=== PATIENT | male | born 1970 | race Caucasian/White ===

== ENCOUNTER 2022-12-08 16:30 | Emergency (ER) | payer MEDICARE, MEDICAID, SELFPAY ==
[2022-12-08 16:45] VITALS: BP 130/69; PULSE 69; RESP 20; TEMP 36.6; O2SAT 96
--- NOTE | 2022-12-08 17:09 | ED.GENADULT ---
HPI - General Adult General Chief complaint: Unspecified Stated complaint: Hemorrhoids Time Seen by Provider: 12/08/22 17:09 Source: patient, RN notes reviewed and old records reviewed Mode of arrival: ambulatory Limitations: no limitations History of Present Illness HPI narrative: 51 year old male presents to [facility] with some complaints of noting blood in the stool on Wednesday after having bowel movement. Patient states that he also has noted some blood in his boxers. Patient reports that he has had problems with hemorrhoids in the past and has used Tucks in the past.Patient states that he didn't not any bleeding this morning but he has rectal pain which continues. MD complaint: hemorrhoids bleeding Onset (ago): day(s) (2) Location: buttocks (rectal) Severity scale (1-10): 6 Treatments prior to arrival: none Related Data Home Medications Medication Instructions Recorded Confirmed allopurinol 300 mg tablet 300 mg PO DIRECTED 12/08/22 12/08/22 amlodipine 2.5 mg tablet 2.5 mg PO DIRECTED 12/08/22 12/08/22 dulaglutide 0.75 mg/0.5 mL 0.75 mg subcut DIRECTED 12/08/22 12/08/22 subcutaneous pen injector (Trulicity) empagliflozin 25 mg tablet 25 mg PO DIRECTED 12/08/22 12/08/22 (Jardiance) levothyroxine 125 mcg tablet 125 mcg PO DIRECTED 12/08/22 12/08/22 pravastatin 40 mg tablet 40 mg PO DIRECTED 12/08/22 12/08/22 Allergies Allergy/AdvReac Type Severity Reaction Status Date / Time No Known Allergies Allergy Verified 12/08/22 16:58 Review of Systems Review of Systems: CONSTITUTIONAL: Denies fever, chills, or sweats. EYES: Denies visual changes, redness, or discharge. ENT: Denies rhinorrhea, congestion, sore throat, or otalgia. CARDIOVASCULAR: Denies chest pain, palpitations, or edema. RESPIRATORY: Denies cough or dyspnea. GASTROINTESTINAL: Denies abdominal pain, nausea, vomiting, or diarrhea.positive for hemorrhoids with bleeding, rectal pain GENITOURINARY: Denies dysuria or hematuria. SKIN: Denies rash or itching., rectal MUSCULOSKELETAL: Denies back pain, joint pain, or myalgia. NEUROLOGIC: Denies headache, numbness, or weakness. PSYCHIATRIC: Denies anxiety or depression. All systems reviewed & are unremarkable except as noted in HPI and below PMFSH Past Medical History Medical History (Updated 12/10/22 @ 19:37 by Katharine Lama NP) Diabetes Hyperlipidemia Hypertension Hypothyroidism Social History Social History (Updated 12/10/22 @ 19:26 by Katharine Lama NP) Gender identity (if verbalized by the patient): Male Comments At time of signature, agree with nursing past medical, surgical, social and family history. There is no relevant family history pertinent to the presenting complaint Exam Narrative: GENERAL: Well-appearing, well-nourished, and in no acute distress. HEAD: Normocephalic, atraumatic. EYES: PERRLA and EOMI. ENT: Nares clear, no rhinorrhea or epistaxis. Mucous membranes moist. NECK: Supple. no lymphadenopathy CHEST: Clear to auscultation. No respiratory distress. SAO2 96% on room air HEART: Regular rate and rhythm. No murmur heard. Normal peripheral pulses. ABDOMEN: Soft, nontender, nondistended, normal active bowel sounds. external hemorrhoid not thrombosed noted on exam some blood noted on buttocks no acute active bleeding noted. EXTREMITIES: Normal range of motion. No edema. SKIN: Warm, dry, no rash. NEURO: No focal deficits. Alert and oriented x3. Course Course Emergency Course: Patient is aware of diagnosis, understands and agrees to treatment plan.? Anticipatory guidance given.? Patient agrees to follow-up as directed and is aware of reasons to seek care at the emergency department. Portions of this record may have been created with voice recognition software Level of Care: Express Care Visit Vital Signs Vital signs: Vital Signs Temperature 36.6 C 12/08/22 16:45 Pulse Rate 69 12/08/22 16:45 Respiratory Rate 20 12/08/22
== END 2022-12-08 18:01 | disposition home or self-care (01) ==
PROVIDERS: Emergency Provider Registered Nurse
DX: K64.9 Unspecified hemorrhoids (principal); E11.9 Type 2 diabetes mellitus without complications; E78.5 Hyperlipidemia, unspecified; I10 Essential (primary) hypertension; E03.9 Hypothyroidism, unspecified
CPT/HCPCS: 99213; G0463